=== PATIENT | male | born 1975 | race Caucasian/White ===

== ENCOUNTER 2022-08-15 15:40 | Inpatient (IN) ==
[2022-08-15] MEDS ORDERED: LORazepam 2 mg VIAL 1 ml IM ONE (15:45)
[2022-08-15] MEDS ORDERED: Lorazepam PYXIS KEY PRN (15:45)
[2022-08-15] MEDS ORDERED: Haloperidol 5 mg/ml SDV IV/IM 5 MG/ML AMP IM ONE (15:45)
[2022-08-15 16:58] LABS: ABS Lymphocytes 1.1 10^3/uL (1.0-4.8); ABS Monocytes 0.4 10^3/uL (0.0-1.1); ABS Neutrophils 3.9 10^3/uL (1.5-7.6); Eosinophil % 0.4 %; Hematocrit 37.8 % (38-53); Hemoglobin 13.1 g/dL (13.2-16.3); Lymphocyte % 20.9 %; Mean Corpuscular Hemoglobin 32.4 pg (27-33); Mean Corpuscular Hgb Conc 34.7 g/dL (31-36); Mean Corpuscular Volume 93.3 fL (80-97); Mean Platelet Volume 7.9 fL (7.5-11.2); Nucleated Red Blood Cells % 0.1 /100 WBC (0.0-0.4); Platelet Count 168 10^3/uL (150-450); Red Blood Count 4.06 10^6/uL (4.06-5.63); Red Cell Distribution Width 13.4 % (12-17); White Blood Count 5.4 10^3/uL (3.6-10.2)
[2022-08-15 17:18] LABS: ALT 86 U/L (7-52); AST 114 U/L (13-39); Albumin 4.2 g/dL (3.2-5.2); Albumin/Globulin Ratio 1.9 (1-3); Alkaline Phosphatase 41 U/L (35-149); Anion Gap 9 mmol/L (2-16); Blood Urea Nitrogen 18 mg/dL (6-24); CO2 Carbon Dioxide 25 mmol/L (22-32); Calcium 9.1 mg/dL (8.6-10.3); Chloride 107 mmol/L (101-111); Creatinine, Serum 1.08 mg/dL (0.67-1.17); Globulin 2.2 g/dL (2-4); Glucose 104 mg/dL (70-100); Potassium 3.4 mmol/L (3.5-5.0); Sodium 141 mmol/L (135-145); Total Protein 6.4 g/dL (6.4-8.9); eGFR CKD-EPI 84.6 (>60)
[2022-08-15 17:35] LABS: Acetaminophen < 15 mcg/mL; Alcohol, S < 13 mg/dL (<13); Salicylate < 2.50 mg/dL (<30)
[2022-08-15 17:44] LABS: Creatine Kinase 3517 U/L (10-223)
[2022-08-15] MEDS ORDERED: Lactated Ringers 1000 ml BAG 1,000 ML IV ONE ×2 (17:45→17:47)
[2022-08-15 17:47] LABS: TSH Ultra Thyroid Stim Horm 0.46 mcIU/mL (0.34-5.60)
[2022-08-15 21:45] LABS: Urine Appearance Clear; Urine Bilirubin Negative (Negative); Urine Blood Negative (Negative); Urine Color Amber; Urine Glucose Negative (Negative); Urine Ketones 2+ (Negative); Urine Nitrite Negative (Negative); Urine Protein 2+(100 mg/dL) (Negative); Urine Specific Gravity 1.034 (1.002-1.030); Urine Urobilinogen Negative (Negative)
[2022-08-15 21:49] LABS: Urine Bacteria Absent (Absent); Urine Benzodiazepine Screen None Detected (None Detect); Urine Buprenorphine Screen None Detected (None Detect); Urine Cannabinoids Screen Presumptive Positive (None Detect); Urine Fentanyl Screen None Detected (None Detect); Urine Hydrocodone Screen None Detected (None Detect); Urine Opiates Screen None Detected (None Detect); Urine Red Blood Cell Absent (Absent); Urine White Blood Cell Trace(0-5/hpf) (Absent)
[2022-08-15] MEDS ORDERED: OLANZapine 10 mg TAB*ODT PO ONE (22:09)
[2022-08-16] MEDS ORDERED: LORazepam 2 mg VIAL 1 ml IV PUSH ONE (11:39)
[2022-08-16] MEDS ORDERED: Lorazepam PYXIS KEY PRN (11:39)
[2022-08-18 08:24] LABS: HDL Cholesterol 50.3 mg/dL
[2022-08-23] MEDS ORDERED: LORazepam 2 mg VIAL 1 ml ONE (05:12)
[2022-08-23] MEDS ORDERED: Haloperidol 5 mg/ml SDV IV/IM 5 MG/ML AMP ONE (05:12)
[2022-08-23] MEDS ORDERED: Lorazepam PYXIS KEY PRN (05:20)
[2022-08-23] MEDS ORDERED: Haloperidol 5 mg/ml SDV IV/IM 5 MG/ML AMP IM ONE (05:30)
[2022-08-23] MEDS ORDERED: LORazepam 2 mg VIAL 1 ml IM ONE (05:30)
[2022-08-30 09:09] VITALS: BP 115/73
== END 2022-08-30 10:50 | disposition home or self-care (01) | DRG 753 ==
LOC: ED 15:40 → BSU 08-16 11:00
PROVIDERS: ADMIT Student in an Organized Health Care Education/Training Program; ATTEND Psychiatry & Neurology Psychiatry